=== PATIENT | female | born 1980 | race Hispanic/Latino ===

== ENCOUNTER 2018-07-15 14:26 | Emergency (ER) | payer SELFPAY ==
[2018-07-15] MEDS ORDERED: Sodium Chloride 0.9% 1,000 ML IV STA (16:00)
--- NOTE | 2018-07-15 16:22 | ED PDOC ---
HPI: Female Pain Time Seen by Provider: 07/15/18 15:40 Chief Complaint (Nursing): Female Genitourinary Chief Complaint (Provider): pelvic cramping, bleeding History Per: Patient History/Exam Limitations: no limitations Severity: Moderate Quality Of Discomfort: Cramping Additional Complaint(s): 37yo female approx 6 wks presents w pelvic cramping and bleeding, seen this week at [facility] told threatened , HCG approx 7000, US showed poss gestational sac, Rh+ (patient has paperwork with her). But today pain and bleeding worsened. Denies syncope, dizziness or fever. She notes feeling some tissue in vaginal vault. Abnormal Vaginal Bleeding: Yes Past Medical History Reviewed: Historical Data, Nursing Documentation, Vital Signs Vital Signs: Last Vital Signs Temp 98.0 F 07/15/18 14:32 Pulse 65 07/15/18 14:32 Resp 16 07/15/18 14:32 BP 131/81 07/15/18 14:32 Pulse Ox 99 07/15/18 14:32 - Medical History PMH: Anxiety, Depression - Family History Family History: States: Unknown Family Hx - Home Medications Home Medications: Ambulatory Orders Medication Instructions Recorded Ibuprofen [Motrin Tab] 600 mg PO Q6 PRN #15 tab 07/15/18 oxyCODONE/Acetaminophen [Percocet 1 ea PO Q6 PRN #6 tab 07/15/18 5/325 mg Tab] - Allergies Allergies/Adverse Reactions: Allergies Allergy/AdvReac Type Severity Reaction Status Date / Time No Known Allergies Allergy Verified 07/15/18 15:59 Review of Systems Constitutional: Negative for: Fever Cardiovascular: Negative for: Chest Pain Respiratory: Negative for: Shortness of Breath Gastrointestinal: Positive for: Nausea Genitourinary Female: Positive for: Vaginal Bleeding, Pelvic Pain. Negative for : Dysuria, Vaginal Discharge Musculoskeletal: Negative for: Neck Pain Skin: Negative for: Rash Neurological: Negative for: Weakness, Confusion, Headache, Dizziness Psych: Positive for: Anxiety. Negative for: Depression Physical Exam - Reviewed Nursing Documentation Reviewed: Yes Vital Signs Reviewed: Yes - Physical Exam Appears: Positive for: Well, Non-toxic, No Acute Distress Head Exam: Positive for: ATRAUMATIC, NORMAL INSPECTION, NORMOCEPHALIC Skin: Positive for: Normal Color, Warm, DRY Eye Exam: Positive for: EOMI, Normal appearance, PERRL ENT: Positive for: Normal ENT Inspection Neck: Positive for: Normal, Painless ROM Cardiovascular/Chest: Negative for: Tachycardia Respiratory: Positive for: CNT, Normal Breath Sounds Gastrointestinal/Abdominal: Positive for: Soft. Negative for: Tenderness Pelvic Exam: Positive for: Active Bleeding, Blood, Other (blood and tissue in vaginal vault, removed w forceps, mild bleeding thereafter). Negative for: Discharge Back: Positive for: Normal Inspection Extremity: Positive for: Normal ROM Neurologic/Psych: Positive for: Alert, Oriented. Negative for: Motor/Sensory Deficits - Laboratory Results Result Diagrams: 07/15/18 16:35 07/15/18 16:35 - ECG O2 Sat by Pulse Oximetry: 99 Medical Decision Making Medical Decision Making: BHCG trending down from Azam value Rh+_ US does not revel viable Given tissue in vault, concern for active minimal bleeding on evaluation, additional pain medicine given, patient requested to be discharged after offering obs in ED to see if bleeding or pain returns. Followup [employer]ERSON 2-3 days follow HCG to zero may need additional US. Indications for return ER discussed. Rx NSAID and percocet #6 tabs, educated on addictive potential and safe disposal of medication if not used. Disposition - Clinical Impression Clinical Impression: Miscarriage - Patient ED Disposition Is Patient to be Admitted: No Counseled Patient/Family Regarding: Studies Performed, Diagnosis, Need For Followup, Rx Given - Disposition Referrals: [facility] [Outside] Disposition: Routine/Home Disposition Time: 18:15 Condition: STABLE Additional Instructions: Return to ER for any new or worsening symptoms, bleeding >3 pads/ hour, weakness /dizziness or any concern. Prescriptions: Ibuprofen [Motrin Tab] 600 mg PO Q6 PRN #15 tab PRN Reason: Pain, Moderate (4-7) oxyCODONE/Acetaminophen [Percocet 5/325 mg Tab] 1 ea PO Q6 PRN #6 tab PRN Reason: Pain, Severe (8-10) Instructions: Dealing With Miscarriage, Miscarriage (DC) Forms: [employer] (Italian)
[2018-07-15 16:37] VITALS: RESP 18
[2018-07-15 16:53] LABS: BASO % 0.3 % (0.0-2.0); EOS # 0.1 K/uL (0.0-0.7); EOS % 1.6 % (0.0-4.0); HEMOGLOBIN 11.2 g/dL (12.0-16.0); LYMPH # 2.4 K/uL (1.0-4.3); MEAN CELL VOLUME 79.8 fl (81.0-99.0); MEAN CORPUSCULAR HEMOGLOBIN 26.1 pg (27.0-31.0); MEAN CORPUSCULAR HGB CONC 32.7 g/dL (33.0-37.0); MEAN PLATELET VOLUME 8.2 fl (7.2-11.7); MONO # 0.7 K/uL (0.0-0.8); MONO % 8.8 % (0.0-10.0); NEUT % 60.3 % (50.0-75.0); RBC 4.27 Mil/uL (3.80-5.20); RED CELL DISTRIBUTION WIDTH 22.4 % (11.5-14.5); WHITE BLOOD COUNT 8.2 K/uL (4.8-10.8)
[2018-07-15 17:18] LABS: BLOOD UREA NITROGEN 11 mg/dl (7-17); GFR NON-AFRICAN AMERICAN > 60
[2018-07-15 18:39] VITALS: BP 140/77; PULSE 52; TEMP 98.4
--- NOTE | 2018-07-15 18:39 | US ---
Date of service: 07/15/2018 HISTORY: 6 wks preg bleeding cramping COMPARISON: None available. TECHNIQUE: FINDINGS: UTERUS: Measures 9.7 x 4.3 x 3.9 cm. Normal in size and appearance. No fibroid or other mass lesion seen. ENDOMETRIUM: Measures 8.6 mm in diameter. The central endometrial echo complex is normal in appearance. No evidence of intrauterine gestation. CERVIX: The endocervical canal is distended with complex fluid. RIGHT OVARY: Measures 1.9 x 1.3 x 1.2 cm. No solid mass. Normal flow. LEFT OVARY: Measures 2.8 x 2.2 x 2.4 cm. No solid mass. Normal flow. FREE FLUID: No significant free fluid noted. OTHER FINDINGS: None. IMPRESSION: No evidence of intrauterine gestation. Complex fluid in the endocervical canal which may represent hemorrhagic/proteinaceous fluid.
[2018-07-15 20:03] VITALS: O2SAT 99
== END 2018-07-15 18:42 | disposition home or self-care (01) ==
LOC: H.ER 14:26
DX: O03.9 Complete or unspecified spontaneous abortion without complication (principal); Z3A.01 Less than 8 weeks gestation of pregnancy
CPT/HCPCS: 76817; 80048; 81025; 84702; 85025; 86850; 86900; 88305; 96361; 96374; 96376; 99285; J2270; J7030

== ENCOUNTER 2018-10-31 15:49 | Emergency (ER) | payer OTHER ==
[2018-10-31 16:26] VITALS: BP 148/89; PULSE 65; RESP 18; TEMP 98.7; O2SAT 100
[2018-10-31] MEDS ORDERED: Sodium Chloride 0.9% 1,000 ML IV STA (17:01)
[2018-10-31 17:41] LABS: BASO % 0.4 % (0.0-2.0); EOS # 0.1 K/uL (0.0-0.7); EOS % 1.1 % (0.0-4.0); HEMOGLOBIN 12.1 g/dL (12.0-16.0); LYMPH # 2.1 K/uL (1.0-4.3); MEAN CELL VOLUME 84.8 fl (81.0-99.0); MEAN CORPUSCULAR HEMOGLOBIN 28.5 pg (27.0-31.0); MEAN CORPUSCULAR HGB CONC 33.6 g/dL (33.0-37.0); MEAN PLATELET VOLUME 8.1 fl (7.2-11.7); MONO # 0.9 K/uL (0.0-0.8); MONO % 8.5 % (0.0-10.0); NEUT # 7.4 K/uL (1.8-7.0); NRBC % 0.1 % (0.0-0.0); RBC 4.25 Mil/uL (3.80-5.20); RED CELL DISTRIBUTION WIDTH 16.8 % (11.5-14.5); WHITE BLOOD COUNT 10.6 K/uL (4.8-10.8)
--- NOTE | 2018-10-31 17:44 | ED PDOC ---
HPI: Abdomen Time Seen by Provider: 10/31/18 16:40 Chief Complaint (Nursing): Abdominal Pain Chief Complaint (Provider): Abdominal Pain History Per: Patient History/Exam Limitations: no limitations Onset/Duration Of Symptoms: Days Current Symptoms Are (Timing): Still Present Additional Complaint(s): Patient is a 38 y/o female with a PMHx of anxiety, depression, bipolar disorder, and schizophrenia who presents to the ED for evaluation of two chief complaints. The patients first complaint is bilateral lower abdominal pain for the past few weeks, however on 09/26/2018 patient took a home test which resulted positive. Patient has had no care and has been taking over the counter vitamins x1 week. Patient has not had an U/S yet. Patient reports she has a history of ovarian cysts and is unsure if the abdominal pain is a result of the cysts or a complication with the . Patient denies vaginal bleeding, fever, cough, SOB, or any urinary symptoms. Of note, this is her fifth , with 3 full term c-sections and 1 miscarriage. The patient's second complaint is anxiety. Patient reports her therapist changed her anxiety medica tion 4/5 months ago. The medication was changed from Klonopin to Clonidine. Patient was told to take Clonidine three times a day but has only been taking it once before bed. Patient states she has been waking up in the middle of the night due to panic attacks. In addition, patient states to experience two to three panic attacks a day. Patient also just recently learned that Clonidine is not safe during prompting further concern. Denies SI, HI, A/V hallucinations. Of note, patient's last period was on 08/20/2018. PCP: None Provided Past Medical History Reviewed: Historical Data, Nursing Documentation, Vital Signs Vital Signs: Last Vital Signs Temp 98.7 F 10/31/18 16:24 Pulse 65 10/31/18 16:24 Resp 18 10/31/18 16:24 BP 148/89 10/31/18 16:24 Pulse Ox 100 10/31/18 16:24 - Medical History PMH: Anxiety, Bipolar Disorder, Depression, Schizophrenia - Surgical History Surgical History: (x3) - Family History Family History: States: Unknown Family Hx - Home Medications Home Medications: Ambulatory Orders Medication Instructions Recorded RX: Ibuprofen [Motrin Tab] 600 mg PO Q6 PRN #15 tab 07/15/18 oxyCODONE/Acetaminophen [Percocet 1 ea PO Q6 PRN #6 tab 07/15/18 5/325 mg Tab] Acetaminophen [Acetaminophen 8 650 mg PO Q8 PRN #21 tablet.er 10/31/18 Hour] 21/Iron Fu/Folic Acid 1 each PO DAILY #60 tablet 10/31/18 [ Complete Caplet] - Allergies Allergies/Adverse Reactions: Allergies Allergy/AdvReac Type Severity Reaction Status Date / Time No Known Allergies Allergy Verified 07/15/18 15:59 Review of Systems ROS Statement: Except As Marked, All Systems Reviewed And Found Negative Constitutional: Negative for: Fever Respiratory: Negative for: Cough, Shortness of Breath Gastrointestinal: Positive for: Abdominal Pain (Bilateral- lower) Genitourinary Female: Negative for: Dysuria, Hematuria, Vaginal Bleeding Neurological: Negative for: Other (Hallucination) Psych: Positive for: Anxiety. Negative for: Suicidal ideation Physical Exam - Reviewed Nursing Documentation Reviewed: Yes Vital Signs Reviewed: Yes - Physical Exam Comments: GENERAL APPEARANCE: Patient is awake, alert, oriented x 3, in no acute distress. Resting comfortably. SKIN: Warm, dry; (-) cyanosis. ENMT: Mucous membranes moist. Airway patent, (-) stridor. NECK: Supple, FROM CHEST AND RESPIRATORY: (-) rales, (-) rhonchi, (-) wheezes; breath sounds equal bilaterally. Respirations even and nonlabored. HEART AND CARDIOVASCULAR: (-) irregularity ABDOMEN AND GI: Soft (-) distention (+) suprapubic and LLQ tenderness (+)bowel sounds active x4 (-) guarding, (-) rebound, (-) palpable masses, (-) CVA t enderness. EXTREMITIES: (-) deformity, (-) edema, (+) distal pulses. NEURO AND PSYCH: Mental status as above; (-) focal findings. Gait: steady. Speech: clear. Affect: appropriate. (-) facial asymmetry - Laboratory Results Result Diagrams: 10/31/18 17:25 10/31/18 17:25 Urine POC: Positive Urine dip results: Negative for: Leukocyte Esterase, Blood, Nitrate, Ketones, Glucose, Bilirubin, Protein - ECG O2 Sat by Pulse Oximetry: 100 (RA) Pulse Ox Interpretation: Normal Medical Decision Making Medical Decision Making: Time: 1700 Impression: Anxiety; Abdominal pain in Plan: Beta-HCG, Quantitative CMP Urine Drug Screen Crisis Evaluation as Ordered Urine urine Dipstick CBC IV Fluids [Tylenol 325 mg Tab] 975 mg PO IV Insertion (Saline Lock) OB , Limited US 1745 Udip reviewed and unremarkable. Upreg: (+) 1810 Per crisis, patient given outpatient follow up/resources with the diagnosis of anxiety per Kendal Wolff SEAT MENDER. Time:1850 FINDINGS: GESTATION: Single live intrauterine gestation. cardiac activity is identified. Gestational sac size is 3.9 cm corresponding 9 weeks and 1 day. pole measures 2.9 cm corresponding to 9 weeks and 4 days. UTERUS: Unremarkable. No myometrial mass. CERVIX: Closed. Unremarkable. OVARIES: Unremarkable. No mass. FREE FLUID: No free fluid. IMPRESSION: Single intrauterine gestation of approximately 9 weeks and 4 days. Close clinical correlation and follow-up study recommended as clinically warranted. Electronically signed on Oct 31, 2018 6:51:52 PM EST by: Malachi Duke M.D., Certified by [facility], Diagnostic Radiology CBC and CMP grossly unremarkable. Utox: (+) cannabinoids Beta Quant: [id number] On re-evaluation, patient reports improvement of symptoms. On exam, patient remains AAOx3, in no acute distress. Lungs clear to auscultation, cardiac RRR, abdomen soft, non-tender, repeat neuro exam shows no focal findings. Vitals stable. Lab / Diagnostic results d/w the patient in great detail. Diagnosis of abdominal pain in , anxiety d/w the patient. Based on history, exam and diagnostic results, plan will be for outpatient follow up with clinic/OBGYN/PMD/as arranged by crisis. Patient instructed to follow-up with pmd / referral provided / the clinic in 1- 2 days without fail. Advised to take medication as prescribed. Return to the emergency room at any time for any new or worsening symptoms. Patient states she fully agrees with and understands discharge instructions. States that she agrees with the plan and disposition. Verbalized and repeated discharge instructions and plan. I have given the patient opportunity to ask any additional questions. Scribe Attestation: Documented by Tapan Marmolejo, acting as a scribe for Ilana MINOR. Provider Scribe Attestation: All medical record entries made by the Scribe were at my direction and personally dictated by me. I have reviewed the chart and agree that the record accurately reflects my personal performance of the history, physical exam, medical decision making, and the department course for this patient. I have also personally directed, reviewed, and agree with the discharge instructions and disposition. Disposition - Clinical Impression Clinical Impression: Abdominal pain affecting , Anxiety - Patient ED Disposition Is Patient to be Admitted: No Counseled Patient/Family Regarding: Studies Performed, Diagnosis, Need For Followup, Rx Given - Disposition Referrals: [facility] [Outside] [facility] [Outside] [facility] [Outside] Disposition: Routine/Home Disposition Time: 19:05 Condition: STABLE Additional Instructions: TRAUMA THERAPIST: CARMEN ESCOBEDO [facility]ONG [phone] [facility] [address] [place] [id number] [facility] 19/05 [facility] [place] [phone] The emergency medical care you received today was directed at your acute symptoms. If you were prescribed any medication, please fill it and take as directed. It may take several days for your symptoms to resolve. Return to the Emergency Department if your symptoms worsen, do not improve, or if you have any other problems. Please contact your doctor in 2 days for re-evaluation and follow up / or call one of the physicians/clinics you have been referred to that are listed on the Patient Visit Information form that is included in your discharge packet. Bring any paperwork you were given at discharge with you along with any medications you are taking to your follow up visit. Our treatment cannot replace ongoing medical care by a primary care provider (PCP) outside of the emergency department. Prescriptions: Acetaminophen [Acetaminophen 8 Hour] 650 mg PO Q8 PRN #21 tablet.er PRN Reason: Pain, Moderate (4-7) 21/Iron Fu/Folic Acid [ Complete Caplet] 1 each PO DAILY #60 tablet Instructions: Anxiety, Adult (DC), Acute Abdomen (Belly Pain), Adult (DC), Care, - The Third Month, - The Fourth Month, - The Fifth Month Forms: [employer] (Bolivian) Print Language: TOGOLESE - POA Present On Arrival: None Results - Lab Results Lab Results: 10/31/18 10/31/18 10/31/18 17:25 17:25 17:25 WBC RBC Hgb Hct MCV MCH MCHC RDW Plt Count MPV Neut % (Auto) Lymph % (Auto) [place] % (Auto) Eos % (Auto) Baso % (Auto) Neut # (Auto) Lymph # (Auto) [place] # (Auto) Eos # (Auto) Baso # (Auto) Sodium 137 Potassium 4.0 Chloride 103 Carbon Dioxide 24 Anion Gap 14 BUN 9 Creatinine 0.5 L Est GFR ( Amer) > 60 Est GFR (Non-Af Amer) > 60 Random Glucose 81 Calcium 9.1 Total Bilirubin 0.1 L AST 28 ALT 29 Alkaline Phosphatase 56 Total Protein 7.6 Albumin 4.2 Globulin 3.3 Albumin/Globulin Ratio 1.3 Beta HCG, Quant 742215.00 Urine Opiates Screen Negative Urine Methadone Screen Negative Ur Barbiturates Screen Negative Ur Phencyclidine Scrn Negative Ur Amphetamines Screen Negative U Benzodiazepines Scrn Negative U Oth Cocaine Metabols Negative U Cannabinoids Screen Positive H 10/31/18 17:25 WBC 10.6 RBC 4.25 Hgb 12.1 Hct 36.0 MCV 84.8 D MCH 28.5 MCHC 33.6 RDW 16.8 H Plt Count 221 MPV 8.1 Neut % (Auto) 70.0 Lymph % (Auto) 20.0 [place] % (Auto) 8.5 Eos % (Auto) 1.1 Baso % (Auto) 0.4 Neut # (Auto) 7.4 H Lymph # (Auto) 2.1 [place] # (Auto) 0.9 H Eos # (Auto) 0.1 Baso # (Auto) 0.0 Sodium Potassium Chloride Carbon Dioxide Anion Gap BUN Creatinine Est GFR ( Amer) Est GFR (Non-Af Amer) Random Glucose Calcium Total Bilirubin AST ALT Alkaline Phosphatase Total Protein Albumin Globulin Albumin/Globulin Ratio Beta HCG, Quant Urine Opiates Screen Urine Methadone Screen Ur Barbiturates Screen Ur Phencyclidine Scrn Ur Amphetamines Screen U Benzodiazepines Scrn U Oth Cocaine Metabols U Cannabinoids Screen
[2018-10-31 17:50] LABS: ALB/GLOB RATIO 1.3 (1.0-2.1); ALBUMIN 4.2 g/dL (3.5-5.0); ALT/SGPT 29 U/L (9-52); AST/SGOT 28 U/L (14-36); BLOOD UREA NITROGEN 9 mg/dl (7-17); CALCIUM 9.1 mg/dL (8.4-10.2); GFR NON-AFRICAN AMERICAN > 60
[2018-10-31 18:00] LABS: BARBITURATES, UR NEGATIVE (NEGATIVE); BENZODIAZEPINES, UR NEGATIVE (NEGATIVE); OPIATES, UR NEGATIVE (NEGATIVE); PHENCYCLIDINE, UR NEGATIVE (NEGATIVE)
--- NOTE | 2018-11-01 08:39 | US ---
Date of service: 10/31/2018 PROCEDURE: HISTORY: abd pain in preg COMPARISON: TECHNIQUE: FINDINGS: There is a single live intrauterine fetus with a crown-rump length of 2.9 cm corresponding to 9 weeks 4 days station age. The heart motion is identified at 171 beats per minute. The ovaries are unremarkable. IMPRESSION: As above.
== END 2018-10-31 19:53 | disposition home or self-care (01) ==
LOC: H.ER 15:49
DX: O26.891 Other specified pregnancy related conditions, first trimester (principal); Z3A.09 9 weeks gestation of pregnancy; F41.9 Anxiety disorder, unspecified
CPT/HCPCS: 76815; 80053; 80324; 80345; 80346; 80349; 80353; 80358; 80361; 81025; 83992; 84702; 85025; 99284; J7030